=== PATIENT | male | born 1965 | race Caucasian/White ===

== ENCOUNTER 2016-08-05 11:36 | Emergency (ER) | payer OTHER ==
[~2016-08-05] VITALS: Ht 175.3 cm; Wt 96.0 kg
[2016-08-05 11:40] VITALS: Ht 175.3 cm; Wt 96.0 kg
[2016-08-05] MEDS ORDERED: PANTOPRAZOLE (EC) 40 MG TAB PO ONE (12:30)
[2016-08-05 13:09] LABS: ADD SCAN DIFF NO
[2016-08-05 13:13] LABS: BASOPHIL # 0.1 10^3/ul (0.0-0.1); BASOPHILS % 0.5 % (0.0-2.0); EOSINOPHILS # 0.2 10^3/ul (0.0-0.5); EOSINOPHILS % 2.4 % (0.0-7.0); HEMATOCRIT 47.8 % (42.0-52.0); HEMOGLOBIN 15.7 g/dl (14.0-18.0); LYMPHOCYTES # 2.6 10^3/ul (0.8-2.9); LYMPHOCYTES % 26.8 % (15.0-51.0); MEAN CORPUSCULAR HEMOGLOBIN 29.3 pg (29.0-33.0); MEAN CORPUSCULAR HGB CONC 32.8 g/dl (32.0-37.0); MEAN CORPUSCULAR VOLUME 89.3 fl (82.0-101.0); MEAN PLATELET VOLUME 10.3 fl (7.4-10.4); MONOCYTE # 0.8 10^3/ul (0.3-0.9); NEUTROPHIL # 5.9 10^3/ul (1.6-7.5); NEUTROPHILS % 61.9 % (39.0-77.0); PLATELET COUNT 297 10^3/UL (140-415); RED BLOOD COUNT 5.35 10^6/ul (4.70-6.10); RED CELL DISTRIBUTION WIDTH 13.2 % (11.5-14.5); WHITE BLOOD COUNT 9.6 10^3/ul (4.8-10.8)
[2016-08-05 13:30] LABS: ALBUMIN 4.4 g/dl (3.3-4.9); ALBUMIN/GLOBULIN RATIO 1.29; BILIRUBIN,INDIRECT 0.3 mg/dl (0-1.1); BILIRUBIN,TOTAL 0.3 mg/dl (0.2-1.3); CALCIUM 9.6 mg/dl (8.4-10.2); CREATININE 0.77 mg/dl (0.61-1.24); POTASSIUM 4.1 mmol/L (3.5-5.1); TOTAL PROTEIN 7.8 g/dl (6.1-8.1)
[2016-08-05] MEDS ORDERED: PANT40TA3 PO (13:43)
--- NOTE | 2016-08-05 14:37 | ERD ---
ER Documentation Chief Complaint Date/Time DATE: 08/05/16 TIME: 14:34 Chief Complaint generalized itchyness x 3 months and heartburn x 2 years HPI Patient is a 50-year-old male with high cholesterol presents with itching. The patient has itching all over his body. The patient also says that he has "heartburn in my mouth". He said that it is worse with eating food and vinegar. He said he had blister on the left side of his mouth as well. He said that his teeth were bleeding with brushing his teeth. He has not called his primary doctor about this as of yet. He said this started months ago. Upon review of old medical records this is the patient's first visit to the emergency department. He has had no treatment as of yet. ROS All systems reviewed and are negative except as per history of present illness. Medications Home Meds Active Scripts Pantoprazole* (Protonix*) 40 Mg Tablet., 40 MG PO DAILY, #20 TAB Prov:RYDER DOLAN MD 08/05/16 Allergies Allergies: Coded Allergies: No Known Allergy (Unverified , 08/05/16) PMhx/Soc Positive for high cholesterol History of Surgery: No Anesthesia Reaction: No Hx Neurological Disorder: No Hx Respiratory Disorders: No Hx Cardiac Disorders: No Hx Psychiatric Problems: No Hx Miscellaneous Medical Probl: No Hx Alcohol Use: Yes Hx Substance Use: No Hx Tobacco Use: No FmHx Family History: No diabetes Physical Exam Vitals Vital Signs Date Time Temp Pulse Resp B/P Pulse Ox O2 Delivery O2 Flow Rate FiO2 08/05/16 11:40 98.3 80 18 154/99 98 Physical Exam Const: No acute distress Head: Atraumatic Eyes: Normal Conjunctiva ENT: Normal External Ears, Nose and Mouth. Neck: Full range of motion..~ No meningismus. Resp: Clear to auscultation bilaterally Cardio: Regular rate and rhythm, no murmurs Abd: Soft, non tender, non distended. Normal bowel sounds Skin: No petechiae or rashes Back: No midline or flank tenderness Ext: No cyanosis, or edema Neur: Awake and alert Psych: Normal Mood and Affect Result Diagram: 08/05/16 1255 08/05/16 1255 Results 24 hrs Laboratory Tests Test 08/05/16 12:55 White Blood Count 9.610^3/ul Red Blood Count 5.3510^6/ul Hemoglobin 15.7g/dl Hematocrit 47.8% Mean Corpuscular Volume 89.3fl Mean Corpuscular Hemoglobin 29.3pg Mean Corpuscular Hemoglobin Concent 32.8g/dl Red Cell Distribution Width 13.2% Platelet Count 55167^3/UL Mean Platelet Volume 10.3fl Neutrophils % 61.9% Lymphocytes % 26.8% Monocytes % 8.0% Eosinophils % 2.4% Basophils % 0.5% Nucleated Red Blood Cells % 0.0/100WBC Neutrophils # 5.910^3/ul Lymphocytes # 2.610^3/ul Monocytes # 0.810^3/ul Eosinophils # 0.210^3/ul Basophils # 0.110^3/ul Nucleated Red Blood Cells # 0.010^3/ul Sodium Level 139mmol/L Potassium Level 4.1mmol/L Chloride Level 106mmol/L Carbon Dioxide Level 24mmol/L Anion Gap 13 Blood Urea Nitrogen 18mg/dl Creatinine 0.77mg/dl Glucose Level 108mg/dl Calcium Level 9.6mg/dl Total Bilirubin 0.3mg/dl Direct Bilirubin 0.00mg/dl Indirect Bilirubin 0.3mg/dl Aspartate Amino Transf (AST/SGOT) 34IU/L Alanine Aminotransferase (ALT/SGPT) 42IU/L Alkaline Phosphatase 94IU/L Total Protein 7.8g/dl Albumin 4.4g/dl Globulin 3.40g/dl Albumin/Globulin Ratio 1.29 Current Medications Medications (Trade) Dose Ordered Sig/Oyssi Route PRN Reason Start Time Stop Time Status Last Admin Dose Admin Pantoprazole (Protonix Tab) 40 mg ONCE ONCE PO 08/05/16 12:30 08/05/16 12:31 DC 08/05/16 12:41 Procedures/MDM Patient is a 50-year-old male presents with itching and bleeding inside his mouth. He has no active bleeding at this time and there is no obvious rash. Laboratory studies are normal including normal platelets and normal bilirubin. I believe outpatient management is appropriate. It is possible the patient has gastritis or reflux and I will give him Protonix. He does need close follow-up with his primary doctor within 24-48 hours. I doubt serious life-threatening etiology at this time and I believe outpatient management is appropriate. He was given copies of his laboratory studies prior to discharge. Departure Diagnosis: Primary Impression: Gums, bleeding Additional Impression: Itching Condition: Fair Patient Instructions: Understanding Healthy Teeth and Gums, Gastritis (Adult) Referrals: VICK FERRARA Additional Instructions: Call your primary care doctor TOMORROW for an appointment during the next 1-2 days.See the doctor sooner or return here if your condition worsens before your appointment time. RYDER DOLAN MD August 05, 2016 14:37
[2016-08-05] MEDS ORDERED: HYDR-842 PO (15:06)
== END 2016-08-05 15:15 | disposition home or self-care (01) ==
LOC: FTE 11:36
DX: K06.8 Other specified disorders of gingiva and edentulous alveolar ridge (principal)
CPT/HCPCS: 80053; 85025; Z7502; Z7610; 99284